=== PATIENT | female | born 1940 | race Native Hawaiian/Other Pacific Islander ===

== ENCOUNTER 2016-05-28 09:42 | Outpatient (CLI) | payer OTHER ==
[~2016-05-28 09:42] MED LIST: AMLO5TAB PO; ASA LOW STR81 MG PO; GLIP5TAB65 PO; GLUCOPHAGE1000 MG PO; LEVAQUIN500 MG OR; LEVEMIR FLEXPEN SC; LEVOTHROID50 MCG PO; LISI20TA31 OR; LORADAMED10 MG PO; Z-PAK PO
[2016-05-28 10:11] LABS: PLATELET COUNT 204 K/uL (152-353)
[2016-05-28 11:47] LABS: POTASSIUM 3.7 mmol/L (3.6-5.2); SODIUM 131 mmol/L (136-145)
== END 2016-05-28 10:42 | disposition home or self-care (01) ==
LOC: LABW 09:42
PROVIDERS: Internal Medicine
DX: E11.9 Type 2 diabetes mellitus without complications (principal); E03.8 Other specified hypothyroidism; R41.82 Altered mental status, unspecified
CPT/HCPCS: 36415; 80053; 80061; 81000; 82043; 82570; 82607; 82747; 83036; 84439; 84443; 85027

== ENCOUNTER 2016-05-30 14:11 | Outpatient (CLI) | payer OTHER | END 2016-05-30 19:06 | disposition home or self-care (01) | LOC: CT 14:11 | DX: R41.82 Altered mental status, unspecified (principal) ==

== ENCOUNTER 2016-06-06 08:57 | Outpatient (CLI) | payer OTHER | END 2016-06-06 19:48 | disposition home or self-care (01) | LOC: MAMMO 08:57 | DX: R41.3 Other amnesia (principal); R10.9 Unspecified abdominal pain; Z12.31 Encounter for screening mammogram for malignant neoplasm of breast | CPT/HCPCS: G0202-TC; Q9963 ==

== ENCOUNTER 2016-10-15 15:30 | Emergency (ER) | payer OTHER ==
[~2016-10-15] VITALS: Ht 152.4 cm; Wt 56.7 kg
[2016-10-15 15:30] VITALS: TEMP 98.6
[2016-10-15 15:50] LABS: PLATELET COUNT 242 K/uL (152-353)
[2016-10-15 16:05] LABS: POTASSIUM 3.7 mmol/L (3.6-5.2)
[2016-10-15 17:50] VITALS: BP 177/83
== END 2016-10-15 18:01 | disposition home or self-care (01) ==
LOC: ED 15:30
DX: R41.0 Disorientation, unspecified (principal); R47.81 Slurred speech
CPT/HCPCS: 36415; 80053; 85027; 96360; 99285

== ENCOUNTER 2016-10-16 10:29 | Outpatient (CLI) | payer OTHER | END 2016-10-16 12:00 | disposition home or self-care (01) | LOC: MRI 10:29 | DX: G93.89 Other specified disorders of brain (principal) | CPT/HCPCS: A9576 ==

== ENCOUNTER 2018-06-04 10:07 | Emergency (ER) | payer OTHER ==
[~2018-06-04] VITALS: Ht 151.1 cm; Wt 44.5 kg
[2018-06-04 12:40] VITALS: BP 162/79; TEMP 97.7
== END 2018-06-04 12:40 | disposition home or self-care (01) ==
LOC: ED 10:07
DX: S40.811A Abrasion of right upper arm, initial encounter (principal); W03.XXXA Other fall on same level due to collision with another person, initial encounter; Y93.89 Activity, other specified; Y92.89 Other specified places as the place of occurrence of the external cause
CPT/HCPCS: 90471; 90715; 99282

== ENCOUNTER 2018-12-29 17:28 | Emergency (ER) | payer OTHER ==
[~2018-12-29] VITALS: Ht 151.1 cm; Wt 44.5 kg
[2018-12-29 18:54] LABS: PLATELET COUNT 270 K/uL (152-353)
[2018-12-29 20:08] LABS: POTASSIUM 4.5 mmol/L (3.6-5.2)
[2018-12-29 23:16] VITALS: BP 169/84; TEMP 97.5
== END 2018-12-29 23:18 | disposition short-term general hospital (02) ==
LOC: ED 17:28
PROVIDERS: Family Medicine
DX: E11.10 Type 2 diabetes mellitus with ketoacidosis without coma (principal); Z79.4 Long term (current) use of insulin; D72.828 Other elevated white blood cell count; E87.2 Acidosis
CPT/HCPCS: 36600; 80053; 81000; 81002; 82805; 82962; 83605; 85027; 87040; 87077; 87086; 87088; 87186; 96360; 96361; 96366; 96375; 99285; J1815; J2543; J3370

== ENCOUNTER 2018-12-29 23:12 | Outpatient (CLI) | payer OTHER | END 2018-12-30 00:28 | disposition short-term general hospital (02) | LOC: AMB 23:12 | DX: E11.10 Type 2 diabetes mellitus with ketoacidosis without coma (principal) | CPT/HCPCS: A0425; A0427 ==

== ENCOUNTER 2019-03-20 08:53 | Outpatient (CLI) | payer OTHER ==
[2019-03-20 10:00] LABS: PLATELET COUNT 267 K/uL (152-353)
[2019-03-20 10:19] LABS: POTASSIUM 4.4 mmol/L (3.6-5.2)
== END 2019-03-20 19:03 | disposition home or self-care (01) ==
LOC: LABW 08:53
PROVIDERS: Internal Medicine
DX: E11.9 Type 2 diabetes mellitus without complications (principal)
CPT/HCPCS: 36415; 80053; 80061; 81000; 83036; 84439; 84443; 85027

== ENCOUNTER 2019-04-30 11:36 | Outpatient (CLI) | payer OTHER | END 2019-04-30 22:47 | disposition home or self-care (01) | LOC: LABW 11:36 | DX: R19.7 Diarrhea, unspecified (principal) | CPT/HCPCS: 82272; 83630; 87015; 87045; 87324; 87328; 87329; 87449; 87899 ==

== ENCOUNTER 2019-08-20 11:42 | Outpatient (CLI) | payer OTHER ==
[2019-08-20 12:14] LABS: POTASSIUM 3.2 mmol/L (3.6-5.2)
[2019-08-20 12:35] LABS: PLATELET COUNT 240 K/uL (152-353)
== END 2019-08-20 23:02 | disposition home or self-care (01) ==
LOC: LAB 11:42
PROVIDERS: Internal Medicine
DX: E11.9 Type 2 diabetes mellitus without complications (principal)
CPT/HCPCS: 80053; 80061; 81000; 83036; 84439; 84443; 85027

== ENCOUNTER 2019-08-25 10:59 | Emergency (ER) | payer OTHER ==
[~2019-08-25] VITALS: Ht 151.1 cm; Wt 51.7 kg
[2019-08-25 11:12] VITALS: BP 135/84; TEMP 98
[2019-08-25 11:59] LABS: PLATELET COUNT 235 K/uL (152-353)
[2019-08-25 12:21] LABS: POTASSIUM 3.5 mmol/L (3.6-5.2)
[2019-08-25] MEDS ORDERED: CULTURELLE DIGE1 CAP PO (14:22)
[2019-08-25] MEDS ORDERED: METR250T19 PO (14:27)
[2019-08-25] MEDS ORDERED: LEVO0.0218 PO (14:29)
[2019-08-25] MEDS ORDERED: LISI20TA11 PO (14:31)
[2019-08-25] MEDS ORDERED: INSUINJP SC (14:31)
[2019-08-25] MEDS ORDERED: CELEXA20 MG PO (14:32)
[2019-08-30] MEDS ORDERED: MEMA5TAB PO (13:12)
[2019-08-30] MEDS ORDERED: OLAN2.5T2 PO (13:14)
[2019-08-30] MEDS ORDERED: ESCI10TA PO (13:15)
[2019-08-30] MEDS ORDERED: DONE5TAB PO (13:16)
[2019-08-30] MEDS ORDERED: CHOL100034 PO (13:16)
== END 2019-08-25 13:23 | disposition other institution (70) ==
LOC: ED 10:59
PROVIDERS: Emergency Medicine
DX: R45.1 Restlessness and agitation (principal); F28 Other psychotic disorder not due to a substance or known physiological condition; Z11.59 Encounter for screening for other viral diseases; Z04.6 Encounter for general psychiatric examination, requested by authority; Z79.899 Other long term (current) drug therapy
CPT/HCPCS: 80053; 80307; 80320; 80329; 81000; 85027; 87635; 93005; 99283; 99285; U00003

== ENCOUNTER 2019-11-29 14:32 | Observation (INO) | payer OTHER ==
[~2019-11-29] VITALS: Ht 152.4 cm; Wt 57.6 kg
[~2019-11-29 14:32] MED LIST changes: +CELEXA20 MG PO; +CHOL100034 PO; +CULTURELLE DIGE1 CAP PO; +DONE5TAB PO; +ESCI10TA PO; +INSUINJP SC; +LEVO0.0218 PO; +LISI20TA11 PO; +MEMA5TAB PO; +METR250T19 PO; +OLAN2.5T2 PO
[2019-11-29 14:40] VITALS: BP 165/73; TEMP 98.1
[2019-11-29 16:01] LABS: PLATELET COUNT 226 K/uL (152-353)
[2019-11-29 16:09] LABS: POTASSIUM 3.9 mmol/L (3.6-5.2); SODIUM 133 mmol/L (136-145)
[2019-11-29 16:21] LABS: PARTIAL THROMBOPLASTIN TIME 24.6 SECONDS (24.5-33.6)
[2019-11-29] MEDS ORDERED: NEURONTIN 100M100 MG PO (18:57)
[2019-11-29 20:00] VITALS: BP 191/84; TEMP 98.3
[2019-11-29 23:58] VITALS: BP 103/70; TEMP 98.1
[2019-11-30 01:38] VITALS: BP 103/70; TEMP 98.1; Ht 152.4 cm; Wt 57.6 kg
[2019-11-30 04:00] VITALS: BP 125/61; TEMP 98.1
[2019-11-30] MEDS ORDERED: CITALOPRAM20 M1 PO (04:11)
[2019-11-30 08:11] VITALS: BP 145/72; TEMP 98.3
[2019-11-30 12:00] VITALS: BP 160/65; TEMP 98.3
[2019-11-30 16:00] VITALS: BP 172/69; TEMP 98.2
== END 2019-11-30 17:45 | disposition home or self-care (01) ==
LOC: ED 14:32 → MED/SURG 17:43
PROVIDERS: ADMIT Hospitalist
DX: R07.89 Other chest pain (principal); R13.19 Other dysphagia; E11.9 Type 2 diabetes mellitus without complications; I10 Essential (primary) hypertension; K21.9 Gastro-esophageal reflux disease without esophagitis; E78.49 Other hyperlipidemia; G30.8 Other Alzheimer's disease; F02.80 Dementia in other diseases classified elsewhere, unspecified severity, without behavioral disturbance, psychotic disturbance, mood disturbance, and anxiety
CPT/HCPCS: 36415; 80053; 82550; 82948; 83880; 84484; 85027; 85610; 85730; 93005; 96360; 96361; 96372; 96375; 99220; 99284; G0378; J1650; J1815; J2405

== ENCOUNTER 2020-03-30 10:14 | Emergency (ER) | payer OTHER ==
[~2020-03-30] VITALS: Ht 152.4 cm; Wt 57.6 kg
[~2020-03-30 10:14] MED LIST changes: +CITALOPRAM20 M1 PO; +NEURONTIN 100M100 MG PO
[2020-03-30 11:24] LABS: POTASSIUM 2.9 mmol/L (3.6-5.2); SODIUM 140 mmol/L (136-145)
[2020-03-30 11:25] LABS: PLATELET COUNT 200 K/uL (152-353)
[2020-03-30 11:34] LABS: PARTIAL THROMBOPLASTIN TIME 24.6 SECONDS (24.5-33.6)
[2020-03-30 12:26] VITALS: BP 166/96; TEMP 98.2
== END 2020-03-30 12:26 | disposition home or self-care (01) ==
LOC: ED 10:14
PROVIDERS: Hospitalist
DX: S09.8XXA Other specified injuries of head, initial encounter (principal); S00.03XA Contusion of scalp, initial encounter; E87.6 Hypokalemia; W18.39XA Other fall on same level, initial encounter; Y92.098 Other place in other non-institutional residence as the place of occurrence of the external cause
CPT/HCPCS: 80053; 80320; 82550; 83880; 84484; 85027; 85610; 85730; 93005; 96374; 99284; J1885

== ENCOUNTER 2020-04-02 22:36 | Emergency (ER) | payer OTHER ==
[~2020-04-02] VITALS: Ht 149.9 cm; Wt 59.0 kg
[2020-04-02 23:02] LABS: PLATELET COUNT 229 K/uL (152-353)
[2020-04-03 01:35] VITALS: BP 174/68; TEMP 99.1
== END 2020-04-03 01:44 | disposition home or self-care (01) ==
LOC: ED 22:36
PROVIDERS: Hospitalist
DX: E11.43 Type 2 diabetes mellitus with diabetic autonomic (poly)neuropathy (principal); K31.84 Gastroparesis; Z79.4 Long term (current) use of insulin; R11.2 Nausea with vomiting, unspecified; E87.6 Hypokalemia
CPT/HCPCS: 36415; 80053; 81000; 82150; 83690; 85027; 96360; 96374; 96375; 96376; 99284; J2405; J3490